=== PATIENT | male | born 1995 | race Caucasian/White ===

== ENCOUNTER 2020-03-05 00:19 | Inpatient (IN) | payer MEDICAID ==
[~2020-03-05] VITALS: Ht 172.7 cm; Wt 75.3 kg
[~2020-03-05 00:19] MED LIST: FLUT16SP10 NAS; IBUP-1984 PO; ONDA4TAB59 PO; TOP25T PO
[2020-03-05] MEDS ORDERED: normal saline 1000ML IV soln IVB ONE (00:55)
[2020-03-05] MEDS ORDERED: LIDOcaine 1% W/epiNEPHrine 1:200,000 10ml vial IJ ONE (00:55)
[2020-03-05] MEDS ORDERED: vancomycin/NS 1 GM ADD-VANTAGE 250 ML IV ONE (00:55)
--- NOTE | 2020-03-05 01:45 | NUR ---
Several attempts have been made to establish a peripheral IV and obtain labs unsuccessfully Dr Norris is aware. Will try ultrasound guided IVs.
[2020-03-05 02:43] LABS: BASOPHILS # (AUTO) 0.1 X10'3 (0-0.2); BASOPHILS % (AUTO) 0.6 % (0-1); EOSINOPHILS # (AUTO) 0.3 X10'3 (0-0.9); LYMPHOCYTES # (AUTO) 2.9 X10'3 (1.1-4.8); LYMPHOCYTES % (AUTO) 25.4 % (21-51); MEAN PLATELET VOLUME 5.9 FL (7.4-10.4)
[2020-03-05 02:46] LABS: EOSINOPHILS % (AUTO) 2.6 % (0-6); HEMATOCRIT 29.1 % (42.0-52.0); MEAN CORPUSCULAR HEMOGLOBIN 19.9 PG (27.0-31.0); MEAN CORPUSCULAR VOLUME 64.4 FL (78-98); MONOCYTES % (AUTO) 8.5 % (2-12); NEUTROPHILS # (AUTO) 7.2 X10'3 (1.8-7.7); NEUTROPHILS % (AUTO) 62.9 % (42-75); PLATELET COUNT 690 X10'3 (140-440); RED BLOOD COUNT 4.53 X10'6 (4.70-6.10); RED CELL DISTRIBUTION WIDTH 16.5 % (11.5-14.5); WHITE BLOOD COUNT 11.5 X10'3 (4.5-11.0)
[2020-03-05] MEDS ORDERED: LIDOcaine 1% W/epiNEPHrine 1:100,000 20ml vial IJ ONE (02:50)
[2020-03-05 03:01] LABS: ALANINE AMINOTRANSFERASE 24 U/L (12-78); ALBUMIN 2.9 G/DL (3.4-5.0); ALBUMIN/GLOBULIN RATIO 0.6 (1.1-1.5); ALKALINE PHOSPHATASE 80 IU/L (46-116); ANION GAP 8 (8-16); ASPARTATE AMINO TRANSFERASE 16 U/L (10-37); BILIRUBIN,TOTAL 0.3 MG/DL (0.1-1.0); BLOOD UREA NITROGEN 15 MG/DL (7-18); BUN/CREATININE RATIO 16.7 (5.4-32.0); CALCIUM 9.4 MG/DL (8.5-10.1); CHLORIDE 101 MMOL/L (99-107); POTASSIUM 4.2 MMOL/L (3.5-5.1); SODIUM 138 MMOL/L (135-145); TOTAL CARBON DIOXIDE 28.9 MMOL/L (24-32); TOTAL PROTEIN 7.8 G/DL (6.4-8.2); eGFR > 90 ML/MIN
[2020-03-05 03:10] LABS: GLUCOSE 122 MG/DL (70-104)
[2020-03-05 03:26] LABS: ANISOCYTOSIS 1+; ELLIPTOCYTES FEW; MICROCYTOSIS 1+; PLATELET ESTIMATE INCREASED; POLYCHROMASIA FEW
[2020-03-05] MEDS ORDERED: CefTRIAXone/D5W-Rocephin 1gm 50 ML IV ONE (04:00)
[2020-03-05] MEDS ORDERED: NO HOME MEDS (04:01)
[2020-03-05] MEDS ORDERED: potassium CL 10mEq/100ml bag 100 ML IV PRN ×2 (04:05)
[2020-03-05] MEDS ORDERED: mag hydrox/Alum hydrox/simeth 30ml oral suspension PO PRN (04:05)
[2020-03-05] MEDS ORDERED: magnesium 2GM in 50ml NS 50 ML IV PRN (04:05)
[2020-03-05] MEDS ORDERED: ondansetron/PF 4mg/2ml inj IV PRN (04:05)
[2020-03-05] MEDS ORDERED: magnesium 4gm in 100ml NS 100 ML IV PRN (04:05)
[2020-03-05] MEDS ORDERED: magnesium Cl slow-release 64mg tablet PO PRN (04:05)
[2020-03-05] MEDS ORDERED: acetaminophen 325mg tablet PO PRN ×2 (04:05)
[2020-03-05] MEDS ORDERED: magnesium hydroxide 30ml (MOM) UD suspension PO PRN (04:05)
[2020-03-05] MEDS ORDERED: potassium Cl 20 mEq SR tablet PO PRN ×2 (04:05)
[2020-03-05] MEDS: normal saline 1000ml 1,000 ML IV SCH ×3 (04:37→17:42)
[2020-03-05] MEDS ORDERED: vancomycin 1,750 MG in NS 350ml IV soln IV ONE (05:00)
[2020-03-05] MEDS: K and/or MAG REPLACEMENT MC SCH ×2 (08:00→20:00)
--- NOTE | 2020-03-05 13:44 | NUR ---
Spoke to Dr. Hoffman regarding patient and condition, she states the telemetry order may be cancelled.
[2020-03-05] MEDS: vancomycin/NS 1 GM ADD-VANTAGE 250 ML IV SCH ×2 (14:15→21:31)
--- NOTE | 2020-03-05 15:46 | NUR ---
Patient in room [facility]. I have received report from FAVIO SILVER FROM ER and had the opportunity to ask questions and assume patient care.
[2020-03-05] MEDS ORDERED: VANCOmycin 1250MG/NS 250ml Bag 250 ML IV SCH (17:00)
--- NOTE | 2020-03-05 18:05 | NUR ---
Problems reprioritized. Patient report given, questions answered & plan of care reviewed with FAVIO BRANCH.
--- NOTE | 2020-03-05 18:10 | NUR ---
Patient in room [facility]. I have received report from FAVIO Caceres and had the opportunity to ask questions and assume patient care.
[2020-03-05] MEDS: lactobacillus rhamnosus 10,000 MMU CELLS/CAPSULE PO SCH (19:56)
[2020-03-05 20:00] VITALS: BP 121/65
[2020-03-06] VITALS: BP 106/70
[2020-03-06] MEDS: vancomycin/NS 1 GM ADD-VANTAGE 250 ML IV SCH (05:13)
[2020-03-06 05:57] LABS: BASOPHILS # (AUTO) 0.1 X10'3 (0-0.2); EOSINOPHILS # (AUTO) 0.3 X10'3 (0-0.9); HEMOGLOBIN 8.6 g/dl (14.0-17.9); MONOCYTES # (AUTO) 0.8 X10'3 (0-0.9); RED CELL DISTRIBUTION WIDTH 16.7 % (11.5-14.5); WHITE BLOOD COUNT 8.1 X10'3 (4.5-11.0)
[2020-03-06 05:59] LABS: BASOPHILS % (AUTO) 0.8 % (0-1); EOSINOPHILS % (AUTO) 3.9 % (0-6); LYMPHOCYTES # (AUTO) 2.2 X10'3 (1.1-4.8); LYMPHOCYTES % (AUTO) 27.2 % (21-51); MEAN CORPUSCULAR HEMOGLOBIN 20.4 PG (27.0-31.0); MEAN CORPUSCULAR HGB CONC 31.9 g/dL (33.0-36.5); MEAN PLATELET VOLUME 5.9 FL (7.4-10.4); MONOCYTES % (AUTO) 9.4 % (2-12); NEUTROPHILS # (AUTO) 4.8 X10'3 (1.8-7.7); NEUTROPHILS % (AUTO) 58.7 % (42-75); PLATELET COUNT 611 X10'3 (140-440); RED BLOOD COUNT 4.22 X10'6 (4.70-6.10)
--- NOTE | 2020-03-06 06:03 | NUR ---
Problems reprioritized. Patient report given, questions answered & plan of care reviewed with FAVIO Caceres.
--- NOTE | 2020-03-06 06:11 | NUR ---
Patient in room [facility]. I have received report from FAVIO ZARATE and had the opportunity to ask questions and assume patient care.
[2020-03-06 06:12] LABS: ALANINE AMINOTRANSFERASE 19 U/L (12-78); ALBUMIN 2.5 G/DL (3.4-5.0); ALBUMIN/GLOBULIN RATIO 0.6 (1.1-1.5); ALKALINE PHOSPHATASE 77 IU/L (46-116); ANION GAP 6 (8-16); ASPARTATE AMINO TRANSFERASE 14 U/L (10-37); BILIRUBIN,TOTAL 0.3 MG/DL (0.1-1.0); BLOOD UREA NITROGEN 6 MG/DL (7-18); CALCIUM 8.6 MG/DL (8.5-10.1); CHLORIDE 106 MMOL/L (99-107); CREATININE 0.67 MG/DL (0.60-1.10); MAGNESIUM 1.9 MG/DL (1.5-2.4); POTASSIUM 4.1 MMOL/L (3.5-5.1); SODIUM 140 MMOL/L (135-145); TOTAL CARBON DIOXIDE 28.5 MMOL/L (24-32); TOTAL PROTEIN 6.9 G/DL (6.4-8.2); eGFR > 90 ML/MIN
[2020-03-06 06:46] LABS: GLUCOSE 99 MG/DL (70-104)
[2020-03-06 07:00] VITALS: BP 106/56
[2020-03-06 07:05] LABS: ANISOCYTOSIS 1+; MICROCYTOSIS 2+; PLATELET ESTIMATE INCREASED; TOTAL CELLS COUNTED 100
[2020-03-06 07:08] LABS: HYPOCHROMASIA 2+
[2020-03-06 07:09] LABS: ELLIPTOCYTES FEW
[2020-03-06] MEDS: K and/or MAG REPLACEMENT MC SCH ×2 (08:00→19:42)
[2020-03-06 11:00] VITALS: BP 112/76
[2020-03-06] MEDS: methadone 5mg tablet PO SCH ×3 (12:24→23:39)
[2020-03-06] MEDS ORDERED: VANCOMYCIN LEVEL IV ONE (12:30)
[2020-03-06] MEDS ORDERED: LORazepam 2 mg/ml vial IV ONE (14:20)
[2020-03-06] MEDS: CefTRIAXone/D5W-Rocephin 1gm 50 ML IV SCH (14:39)
[2020-03-06] MEDS: lactobacillus rhamnosus 10,000 MMU CELLS/CAPSULE PO SCH ×2 (14:39→19:49)
[2020-03-06] MEDS: normal saline 1000ml 1,000 ML IV SCH ×2 (14:40→19:52)
[2020-03-06] MEDS: VANCOmycin 1250MG/NS 250ml Bag 250 ML IV SCH ×2 (16:51→22:00)
--- NOTE | 2020-03-06 18:50 | NUR ---
Patient in room [facility]. I have received report from Nicki STAHL and had the opportunity to ask questions and assume patient care.
--- NOTE | 2020-03-06 18:50 | NUR ---
Problems reprioritized. Patient report given, questions answered & plan of care reviewed with FAVIO FRENCH.
[2020-03-06 19:00] VITALS: BP 105/61
[2020-03-06] MEDS: LORazepam 1 MG tablet PO PRN (19:48)
[2020-03-07] VITALS: BP 108/62
[2020-03-07] MEDS: LORazepam 1 MG tablet PO PRN (03:12)
--- NOTE | 2020-03-07 03:20 | NUR ---
Pt. refusing to allow for dressing change d/t being in pain and miserable. He refuses to take tylenol and methadone is scheduled q8hr and ativan q6. Paged for new order.
[2020-03-07] MEDS ORDERED: morphine 2 MG/ML inj. syringe IV ONE (04:00)
[2020-03-07] MEDS: VANCOmycin 1250MG/NS 250ml Bag 250 ML IV SCH ×2 (05:32→14:00)
--- NOTE | 2020-03-07 05:52 | NUR ---
Patient allowed this nurse to place an new bigger optifoam over the soiled dressing.
[2020-03-07] MEDS: normal saline 1000ml 1,000 ML IV SCH (06:05)
[2020-03-07 06:06] LABS: ALANINE AMINOTRANSFERASE 17 U/L (12-78); ALBUMIN 2.5 G/DL (3.4-5.0); ALBUMIN/GLOBULIN RATIO 0.5 (1.1-1.5); ALKALINE PHOSPHATASE 74 IU/L (46-116); ANION GAP 7 (8-16); ASPARTATE AMINO TRANSFERASE 11 U/L (10-37); BILIRUBIN,TOTAL 0.2 MG/DL (0.1-1.0); BLOOD UREA NITROGEN 8 MG/DL (7-18); BUN/CREATININE RATIO 10.8 (5.4-32.0); CALCIUM 8.4 MG/DL (8.5-10.1); CHLORIDE 108 MMOL/L (99-107); CREATININE 0.74 MG/DL (0.60-1.10); GLUCOSE 104 MG/DL (70-104); MAGNESIUM 1.8 MG/DL (1.5-2.4); POTASSIUM 3.8 MMOL/L (3.5-5.1); SODIUM 141 MMOL/L (135-145); TOTAL CARBON DIOXIDE 26.2 MMOL/L (24-32); TOTAL PROTEIN 7.1 G/DL (6.4-8.2); eGFR > 90 ML/MIN
[2020-03-07 06:10] LABS: BASOPHILS # (AUTO) 0.1 X10'3 (0-0.2); EOSINOPHILS # (AUTO) 0.2 X10'3 (0-0.9); EOSINOPHILS % (AUTO) 1.8 % (0-6); HEMOGLOBIN 9.4 g/dl (14.0-17.9); LYMPHOCYTES # (AUTO) 2.8 X10'3 (1.1-4.8); LYMPHOCYTES % (AUTO) 25.9 % (21-51); MEAN CORPUSCULAR HEMOGLOBIN 20.9 PG (27.0-31.0); MEAN CORPUSCULAR HGB CONC 32.4 g/dL (33.0-36.5); MEAN CORPUSCULAR VOLUME 64.7 FL (78-98); MEAN PLATELET VOLUME 6.3 FL (7.4-10.4); MONOCYTES # (AUTO) 0.9 X10'3 (0-0.9); NEUTROPHILS # (AUTO) 6.7 X10'3 (1.8-7.7); NEUTROPHILS % (AUTO) 63.3 % (42-75); RED BLOOD COUNT 4.48 X10'6 (4.70-6.10); RED CELL DISTRIBUTION WIDTH 16.4 % (11.5-14.5); WHITE BLOOD COUNT 10.6 X10'3 (4.5-11.0)
--- NOTE | 2020-03-07 06:40 | NUR ---
Problems reprioritized. Patient report given, questions answered & plan of care reviewed with Harry RN.
[2020-03-07 06:45] LABS: PLATELET COUNT 520 X10'3 (140-440)
[2020-03-07 08:00] VITALS: BP 125/68
[2020-03-07] MEDS: K and/or MAG REPLACEMENT MC SCH (08:00)
[2020-03-07] MEDS: CefTRIAXone/D5W-Rocephin 1gm 50 ML IV SCH (08:19)
[2020-03-07] MEDS: methadone 5mg tablet PO SCH (08:19)
[2020-03-07] MEDS: lactobacillus rhamnosus 10,000 MMU CELLS/CAPSULE PO SCH (08:19)
--- NOTE | 2020-03-07 08:41 | NUR ---
WOUND INFECTION EDUCATION PROVIDED BY [facility]OUND [facility] 1. Patient instructed to call their primary doctor, or go the ED immediately if any of the following symptoms occur: * Increased pain in wound * Increase in drainage from the wound * Redness in the skin surrounding the wound * Warmth in the skin surrounding the wound * Bleeding from the wound * Temperature of 101 or greater 2. If any of these occur while in the hospital tell a nurse immediately. Addendum: 03/07/20 at 0841 by Fanny Junior RN Amended: Links added.
[2020-03-07 09:30] LABS: ANISOCYTOSIS 1+; ELLIPTOCYTES FEW; HYPOCHROMASIA 2+; MICROCYTOSIS 2+; PLATELET ESTIMATE INCREASED; SCHISTOCYTES FEW
[2020-03-07 11:00] VITALS: BP 112/67
[2020-03-07] MEDS ORDERED: VANCOMYCIN LEVEL IV ONE (13:30)
--- NOTE | 2020-03-07 14:18 | NUR ---
Per Primary nurse Harry, patient want to go AMA, would not willing to wait for the doctor. Dr. Eliza herzog
--- NOTE | 2020-03-07 14:20 | NUR ---
Patient left ama and left the hospital, encouraged to return to ER is symptoms return.
== END 2020-03-07 14:50 | disposition left against medical advice (07) | DRG 383 ==
LOC: ER 00:19 → ED HOLD 04:05 → SUR 3N 16:05 → OBSVTOIN 03-06 10:00
PROVIDERS: ADMIT Internal Medicine; ATTEND Internal Medicine
PROC: 0Y9H0ZZ Drainage of Right Lower Leg, Open Approach (ICD-10-PCS; principal; 2020-03-05)
DX: L03.115 Cellulitis of right lower limb (principal); F11.10 Opioid abuse, uncomplicated; F12.90 Cannabis use, unspecified, uncomplicated; L02.415 Cutaneous abscess of right lower limb; J45.909 Unspecified asthma, uncomplicated; I96 Gangrene, not elsewhere classified; F19.10 Other psychoactive substance abuse, uncomplicated; Z53.29 Procedure and treatment not carried out because of patient's decision for other reasons; F32.9 Major depressive disorder, single episode, unspecified; G89.29 Other chronic pain; M54.9 Dorsalgia, unspecified; R00.0 Tachycardia, unspecified; Z71.51 Drug abuse counseling and surveillance of drug abuser
CPT/HCPCS: 36415; 73590; 80053; 80202; 83605; 83735; 84145; 85007; 85008; 85025; 87040; 87081; 96365; 99285; G0378; J0696; J2060; J2270; J3370; J7030; J7040

== ENCOUNTER 2024-04-26 13:28 | Emergency (ER) | payer MEDICAID, OTHER ==
[~2024-04-26] VITALS: Ht 175.3 cm; Wt 80.0 kg
[~2024-04-26 13:28] MED LIST changes: -FLUT16SP10 NAS; -IBUP-1984 PO; +NO HOME MEDS; -ONDA4TAB59 PO; -TOP25T PO
[2024-04-26 15:33] VITALS: BP 134/80; PULSE 88; RESP 16; TEMP 98.1; O2SAT 98
== END 2024-04-26 15:33 | disposition home or self-care (01) ==
LOC: ER 13:28
DX: F11.90 Opioid use, unspecified, uncomplicated (principal); J45.909 Unspecified asthma, uncomplicated; G89.29 Other chronic pain; M54.9 Dorsalgia, unspecified; F32.A Depression, unspecified; F12.90 Cannabis use, unspecified, uncomplicated
CPT/HCPCS: 99281

== ENCOUNTER 2024-04-29 13:36 | Emergency (ER) | payer OTHER ==
[~2024-04-29] VITALS: Ht 175.3 cm; Wt 72.7 kg
[2024-04-29 14:16] VITALS: BP 131/81; PULSE 89; RESP 18; O2SAT 100
[2024-04-29] MEDS: diphenhydrAMINE 50 mg/ml inj IM ONE (15:49)
[2024-04-29] MEDS: metoclopramide 5 mg/ml inj IM ONE (15:49)
[2024-04-29] MEDS: cloNIDine 0.1 mg tablet PO ONE (15:50)
[2024-04-29] MEDS ORDERED: CLON0.1T2 PO (16:36)
[2024-04-29] MEDS ORDERED: ONDA-243 PO (16:36)
== END 2024-04-29 18:13 | disposition home or self-care (01) ==
LOC: ER 13:36
DX: F11.90 Opioid use, unspecified, uncomplicated (principal); J45.909 Unspecified asthma, uncomplicated; F32.A Depression, unspecified; F12.90 Cannabis use, unspecified, uncomplicated; F17.210 Nicotine dependence, cigarettes, uncomplicated
CPT/HCPCS: 96372; 99284; J1200; J2765